=== PATIENT | male | born 1965 | race Caucasian/White ===

== ENCOUNTER 2019-11-14 08:04 | Emergency (ER) | payer OTHER ==
[2019-11-14 08:12] VITALS: BP 112/63; PULSE 68; BMI 31.1
[2019-11-14] MEDS ORDERED: DOCUSATE NA 100 MG/10 ML UNIT-DOSE CUPS PO ONE (09:03)
--- NOTE | 2019-11-14 09:07 | PDOC ---
History of Present Illness - General Chief Complaint: Ear Problem Stated Complaint: NECK PAIN Time Seen by Provider: 11/14/19 08:38 History Source: Patient Exam Limitations: No Limitations - History of Present Illness Initial Comments: 11/14/19 09:05 54y M hx of HIV, cHF, presents with R ear discomfort. The patient notes that he is unable to hear from hsi R ear for a few days. he denies any ear pain, neck pain, headache, fever/chills, n/v, recent illness or uri. no recen instrumentation or ent procedures. he has been using debrox for a few days without significant improvement. Is this a multiple visit Asthma Patient?: No Past History - Medical History Allergies/Adverse Reactions: Allergies Allergy/AdvReac Type Severity Reaction Status Date / Time No Known Allergies Allergy Verified 11/14/19 08:08 Home Medications: Ambulatory Orders Ergocalciferol (Vitamin D2) [Vitamin D2] 50,000 unit PO WEEKLY #8 capsule 04/17/19 Aspirin [Aspirin EC] 81 mg PO DAILY #30 tablet. 06/23/19 Atorvastatin Ca [Lipitor] 20 mg PO HS #30 tablet 06/23/19 Bictegrav/Emtricit/Tenofov Ala [Biktarvy 50-200-25 mg Tablet] 1 each PO DAILY #30 tablet 06/23/19 Carvedilol [Coreg -] 1 tab PO BID #60 tablet 06/23/19 Lisinopril [Zestril] 5 mg PO DAILY #30 tablet 06/23/19 Bupropion HCl [Bupropion HCl Sr] 100 mg PO BID #60 tab.er.12h 10/14/19 Quetiapine Fumarate [Seroquel -] 50 mg PO HS #30 tablet 10/14/19 Zolpidem Tartrate [Ambien] 5 mg PO HS #15 tablet MDD 1 10/14/19 Anemia: No Asthma: No Cancer: No Cardiac Disorders: Yes (h/o cvd) CVA: No COPD: No CHF: No Dementia: No Diabetes: No GI Disorders: No Disorders: No HTN: Yes Hypercholesterolemia: Yes Liver Disease: No Seizures: No Thyroid Disease: No - Surgical History Abdominal Surgery: No Appendectomy: No Cardiac Surgery: No Cholecystectomy: No Lung Surgery: No Neurologic Surgery: No Orthopedic Surgery: No - Psycho-Social/Smoking History Smoking History: Unknown if ever smoked Have you smoked in the past 12 months: No - Substance Abuse Hx (Audit-C & DAST Scrn) How often the patient has a drink containing alcohol: Never Score: In Men: 4 or > Positive; In Women: 3 or > Positive: 0 Screen Result (Pos requires Nsg. Audit-10AR): Negative In the last yr the pt used illegal drug/Rx for NonMed reason: No Score: Yes response is considered Positive: 0 Screen Result (Positive result requires Nsg. DAST-10): Negative Review of Systems - Review of Systems Able to Perform ROS?: Yes Comments:: 11/14/19 09:06 Constitutional - no reported Fever, Chills, HEENT: unable to hear on R ear no reported vision changes, sore throat Abd/GI: no reported nausea, vomiting, : no reported dysuria, frequency, discharge Musculskelatal - no reported back pain, joint swelling skin - no reported bruising, erythema, rash neurological: no reported headache, numbness, focal weakness, tingling, ataxia, hematologic: no reported easy bruising, easy bleeding *Physical Exam - Vital Signs Last Vital Signs Temp Pulse Resp BP Pulse Ox 68 14 112/63 99 11/14/19 08:11 11/14/19 08:11 11/14/19 08:11 11/14/19 08:11 - Physical Exam 11/14/19 09:07 GENERAL: The patient is awake, alert, and fully oriented, Nontoxic - in no acute distress. HEAD: Normocephalic, atraumatic. ENT: impacted cerumen in R ear, no ertyhema, no mastoid tenderness, Normal voice, Moist mucous membranes. NECK: Normal range of motion, supple Procedures - Consent Consent obtained: Verbal Medical Decision Making - Medical Decision Making 11/14/19 09:07 impacted cerumen in the R ear will disimpact no signs of infection 11/14/19 10:52 Patient presenting with R cerumen inpaction. Cerumen impaction noted and irrigation was indicated. Performed R cerumen removal by irrigation w/ Hydrogen peroxide and curette. No trauma or complications noted. TM clear bilaterally and w/out perforation. Pt reports hearing restored. Informed to return to ETC if has new or worsening symptoms such as persistent fevers, persistent vomiting, decreased PO. Expressed understanding of and agreement with plan and all questions answered. Impression: Cerumen Impaction Plan: Discharge from Emergency Department Cerumen impaction noted and irrigation is indicated. Performed cerumen removal by irrigation w/ H2O and curette (10min). No trauma or complications noted. TM clear bilaterally and w/out perforation. Pt reports hearing restored. Discharge - Discharge Information Problems reviewed: Yes Clinical Impression/Diagnosis: Impacted cerumen of right ear Hearing loss due to cerumen impaction Qualifiers: Laterality: right Qualified Code(s): H61.21 - Impacted cerumen, right ear Condition: Improved Disposition: HOME - Admission No - Follow up/Referral Referrals: [facility] [place] [Provider Group] - Patient Discharge Instructions Patient Printed Discharge Instructions: DI for Cerumen Impaction Additional Instructions: Please follow up with your doctor return to the ER if you have worsening ear pain, fever/chills, headache, nausea or vomiting. - Post Discharge Activity
== END 2019-11-14 11:13 | disposition home or self-care (01) ==
LOC: JER 08:04
DX: H61.21 Impacted cerumen, right ear (principal)
CPT/HCPCS: 99283-25